=== PATIENT | male | born 1955 | race Caucasian/White ===

== ENCOUNTER → 2017-01-08 | Outpatient (CLI) | payer OTHER ==
[~2017-01-08] MED LIST: REGADENOSON 0.4 MG/5 ML SYRINGE ONE
== END | disposition home or self-care (01) ==
LOC: CFH 08:02
PROVIDERS: ATTEND Internal Medicine Cardiovascular Disease
DX: I08.3 Combined rheumatic disorders of mitral, aortic and tricuspid valves (principal); I37.1 Nonrheumatic pulmonary valve insufficiency; I10 Essential (primary) hypertension; I77.819 Aortic ectasia, unspecified site
CPT/HCPCS: 78452; 93017; 93306; A9502; J2785

== ENCOUNTER → 2017-05-07 | Outpatient (CLI) | payer OTHER ==
[~2017-05-07] MED LIST changes: +ASPI-496 PO; +CHOL500015 PO; +CINN500C2 PO; +GLUC1500 PO; +METO25TA91 PO; +MULT-717 PO; +OMEG1CAP6 PO; +OMEP-110 PO; +OXYC1TAB7 PO; -REGADENOSON 0.4 MG/5 ML SYRINGE ONE; +SIMV20TA3 PO; +[UNRECOGNIZED DRUG - OTHER] PO
[2017-05-07 16:26] LABS: HEMATOCRIT 44.1 % (39.2-51.8); HEMOGLOBIN 14.6 g/dL (13.7-18.0)
[2017-05-07 16:29] LABS: BLOOD UREA NITROGEN 19 mg/dL (7-18)
[2017-05-07 16:33] LABS: ASPARTATE AMINO TRANSFERASE 19 U/L (15-37)
[2017-05-07 16:47] LABS: HIV 1&2 ANTIBODY SCREEN Nonreactive (Nonreactive); HIV-1 p24 ANTIGEN Nonreactive (Nonreactive)
== END | disposition home or self-care (01) ==
LOC: STAR 15:07
PROVIDERS: ATTEND Orthopaedic Surgery
DX: Z01.818 Encounter for other preprocedural examination (principal); M16.11 Unilateral primary osteoarthritis, right hip
CPT/HCPCS: 36415; 80053; 81003; 85025; 86703; 87081; 87899; 93005; G0435

== ENCOUNTER 2017-05-18 07:17 | Inpatient (IN) | payer OTHER ==
[~2017-05-18] VITALS: Ht 154.9 cm; Wt 80.1 kg
[~2017-05-18 07:17] MED LIST changes: +EPINEPHRINE 1 MG/ML, 1ML ONE; +KETOROLAC 60 MG/2 ML ONE; +ROPIvacaine/PF 0.2%, 20 ML ONE; +SODIUM CHLORIDE 0.9% 50 ML ONE; +TRANEXAMIC ACID 100 MG/ML, 10ML ONE
[2017-05-18] MEDS ORDERED: VANCOMYCIN PMX 1GM/200ML 200 ML IV STA (07:30)
[2017-05-18] MEDS ORDERED: LACTATED RINGERS 1,000 ML IV SCH (07:46)
[2017-05-18] MEDS ORDERED: LIDOCAINE 1%, 2ML SQ PRN (08:00)
[2017-05-18] MEDS ORDERED: MIDAZOLAM 1 MG/ML, 2ML ONE (08:27)
[2017-05-18] MEDS ORDERED: FENTANYL PF 100 MCG/2ML ONE ×4 (08:28→11:37)
[2017-05-18] MEDS ORDERED: morphine SULFATE/PF 1 MG/ML, 10ML ONE (09:11)
[2017-05-18] MEDS ORDERED: ONDANSETRON 2MG/ML, 2ML IVPush PRN ×2 (09:30→13:30)
[2017-05-18] MEDS ORDERED: LABETALOL 5MG/ML, 20ML IV PRN (09:30)
[2017-05-18] MEDS ORDERED: KETOROLAC 30 MG/1 ML IV PRN (09:30)
[2017-05-18] MEDS ORDERED: METOCLOPRAMIDE 5 MG/ML, 2ML IV PRN (09:30)
[2017-05-18] MEDS ORDERED: MEPERIDINE/PF 25MG/0.5ML IVPush PRN (09:30)
[2017-05-18] MEDS ORDERED: OXYcodone 5 MG/5 ML ORAL.SOL UDC PO PRN (09:30)
[2017-05-18] MEDS ORDERED: MIDAZOLAM 1 MG/ML, 2ML IV PRN (09:30)
[2017-05-18] MEDS ORDERED: HYDROcodone/APAP 7.5-325MG/15ML UDC PO PRN (09:30)
[2017-05-18] MEDS ORDERED: FENTANYL PF 100 MCG/2ML IV PRN (09:30)
[2017-05-18] MEDS ORDERED: HYDROmorphone 1 MG/ML, 1ML IV PRN (09:30)
[2017-05-18] MEDS ORDERED: GLYCOPYRROLATE 0.2MG/1ML, 5ML ONE (09:32)
[2017-05-18] MEDS ORDERED: DEXAMETHASONE 4 MG/ML, 1ML ONE (09:32)
[2017-05-18] MEDS ORDERED: ROCURONIUM 10 MG/ML ONE (09:32)
[2017-05-18] MEDS ORDERED: CEFAZOLIN 1,000 MG ONE (09:32)
[2017-05-18] MEDS ORDERED: BACITRACIN 50,000 UNIT ONE (10:26)
[2017-05-18] MEDS ORDERED: ACETAMINOPHEN 650 MG/20.3 ML UDC ONE (11:37)
[2017-05-18] MEDS ORDERED: OXYcodone 5 MG/5 ML ORAL.SOL UDC ONE (11:38)
[2017-05-18] MEDS ORDERED: HYDROmorphone 1 MG/ML, 1ML ONE (11:38)
[2017-05-18] MEDS ORDERED: ACETAMINOPHEN 325 MG TABLET PO PRN ×2 (12:30→13:30)
[2017-05-18] MEDS ORDERED: DIPHENHYDRAMINE 25 MG CAPSULE PO PRN (13:30)
[2017-05-18] MEDS ORDERED: OXYcodone/APAP 7.5/325MG TABLET PO PRN (13:30)
[2017-05-18] MEDS ORDERED: ZOLPIDEM 5MG TABLET PO PRN (13:30)
[2017-05-18] MEDS ORDERED: TRANEXAMIC ACID 100 MG/ML, 10ML IVPB ONE (13:30)
[2017-05-18] MEDS ORDERED: morphine SULFATE 10 MG/ML, 1ML IVPush PRN (13:30)
[2017-05-18] MEDS ORDERED: LORazepam 2 MG/ML, 1ML IVPush PRN (13:30)
[2017-05-18] MEDS: D5%-0.45% NACL 1,000 ML IV SCH ×3 (14:13→22:52)
[2017-05-18] MEDS ORDERED: TRANEXAMIC ACID 1,000 MG in SODIUM CHLORIDE 0.9% 100 ML IV ONE (14:30)
[2017-05-18] MEDS: CEFAZOLIN PMX 1GM/50ML 50 ML IVPB SCH (17:08)
[2017-05-18 20:18] VITALS: BP 115/72
[2017-05-18] MEDS ORDERED: SIMVASTATIN 20 MG TABLET PO SCH (21:00)
[2017-05-18] MEDS: ASPIRIN 81 MG TABLET EC PO SCH (22:52)
[2017-05-19 00:06] VITALS: BP 108/70
[2017-05-19] MEDS: CEFAZOLIN PMX 1GM/50ML 50 ML IVPB SCH ×2 (01:32→10:24)
[2017-05-19] MEDS: D5%-0.45% NACL 1,000 ML IV SCH ×3 (02:20→14:13)
[2017-05-19 04:07] VITALS: BP 113/71
[2017-05-19] MEDS ORDERED: METOPROLOL SUCCINATE 25 MG TAB.ER.24H PO SCH (06:00)
[2017-05-19] MEDS ORDERED: OMEPRAZOLE 20 MG CAPSULE.DR PO SCH (07:30)
[2017-05-19] MEDS ORDERED: VANCOMYCIN PMX 1GM/200ML 200 ML IVPB ONE (08:00)
[2017-05-19 08:02] VITALS: BP 119/74
[2017-05-19] MEDS ORDERED: CHOLECALCIFEROL 1,000 UNIT TABLET PO SCH (09:00)
[2017-05-19] MEDS ORDERED: OMEGA-3/FISH OIL CAPSULE PO SCH (09:00)
[2017-05-19] MEDS ORDERED: MULTIVITAMINS/MINERALS TABLET PO SCH (09:00)
[2017-05-19] MEDS: ASPIRIN 81 MG TABLET EC PO SCH (10:26)
[2017-05-19 12:41] VITALS: BP 115/76
[2017-05-19 14:39] VITALS: BP 109/69
[2017-05-19] MEDS ORDERED: HYDR-3240 PO (16:16)
[2017-05-19] MEDS ORDERED: ASPIRIN 325 MG TABLET EC PO SCH (17:00)
[2017-05-19] MEDS ORDERED: DOCUSATE 100 MG CAPSULE PO SCH (21:00)
== END 2017-05-19 16:35 | disposition home or self-care (01) | DRG 470 ==
LOC: ORIP 07:17 → 4NOR 13:40
PROVIDERS: ADMIT Orthopaedic Surgery; ATTEND Orthopaedic Surgery
PROC: 0SR90JZ Replacement of Right Hip Joint with Synthetic Substitute, Open Approach (ICD-10-PCS; principal; 2017-05-18 09:30)
DX: M16.11 Unilateral primary osteoarthritis, right hip (principal)
CPT/HCPCS: 36415; 85018; 86850; 86870; 86880; 86900; 86922; 86923; C1713; J0171; J0690; J1100; J1170; J1885; J2250; J2274; J2795; J3010; J3370; J3490; C1776; J7120

== ENCOUNTER → 2018-04-05 | Outpatient (CLI) | payer OTHER ==
[~2018-04-05] MED LIST changes: -EPINEPHRINE 1 MG/ML, 1ML ONE; -GLUC1500 PO; +GLUC15006 PO; +HYDR-3240 PO; -KETOROLAC 60 MG/2 ML ONE; -ROPIvacaine/PF 0.2%, 20 ML ONE; -SODIUM CHLORIDE 0.9% 50 ML ONE; -TRANEXAMIC ACID 100 MG/ML, 10ML ONE
== END | disposition home or self-care (01) ==
LOC: CFH 14:47
PROVIDERS: ATTEND Physician Assistant Medical
DX: I08.2 Rheumatic disorders of both aortic and tricuspid valves (principal); I11.9 Hypertensive heart disease without heart failure; E78.5 Hyperlipidemia, unspecified
CPT/HCPCS: 93306

== ENCOUNTER 2019-04-15 12:32 | Outpatient (CLI) | payer OTHER | END 2019-04-15 23:59 | disposition home or self-care (01) | LOC: CFH 12:32 | PROVIDERS: ATTEND Internal Medicine Cardiovascular Disease | DX: I08.2 Rheumatic disorders of both aortic and tricuspid valves (principal); I10 Essential (primary) hypertension; E78.2 Mixed hyperlipidemia | CPT/HCPCS: 93306 ==

== ENCOUNTER → 2020-03-01 | Outpatient (CLI) | payer OTHER ==
[~2020-03-01] MED LIST changes: +SIMV20TA19 PO; -SIMV20TA3 PO
== END | disposition home or self-care (01) ==
LOC: CFH 14:22
PROVIDERS: ATTEND Internal Medicine Cardiovascular Disease
DX: Z13.6 Encounter for screening for cardiovascular disorders (principal); I71.2 Thoracic aortic aneurysm, without rupture; I25.10 Atherosclerotic heart disease of native coronary artery without angina pectoris; I35.8 Other nonrheumatic aortic valve disorders; E78.00 Pure hypercholesterolemia, unspecified; R59.0 Localized enlarged lymph nodes; R91.1 Solitary pulmonary nodule; I10 Essential (primary) hypertension; E78.5 Hyperlipidemia, unspecified
CPT/HCPCS: 75571; 93306